=== PATIENT | female | born 1980 | race Caucasian/White ===

== ENCOUNTER 2019-11-17 14:48 | Inpatient (IN) | payer MEDICAID ==
[~2019-11-17] VITALS: Ht 157.5 cm; Wt 68.0 kg
[2019-11-17 15:15] VITALS: BP 131/84
[2019-11-17 15:31] VITALS: BP 131/84
[2019-11-17] MEDS ORDERED: BISACODYL 5MG TABLET PO PRN (18:15)
[2019-11-17] MEDS ORDERED: MAGNESIUM HYDROXIDE 400MG/5ML 30ML UDC PO PRN (18:15)
[2019-11-17] MEDS ORDERED: ACETAMINOPHEN 650MG/20.3ML UDC PO PRN (18:15)
[2019-11-17 20:00] VITALS: BP 125/81
[2019-11-17] MEDS ORDERED: WARFARIN SODIUM 2MG TABLET PO NR (20:00)
[2019-11-17] MEDS: SENNOSIDES/DOCUSATE SOD 8.6/50MG TABLET PO SCH (20:41)
[2019-11-18 06:54] LABS: INR 1.6; PROTHROMBIN TIME 17.1 sec (9.6-11.0)
[2019-11-18 07:05] LABS: BASOPHILS % 0.5 % (0.0-2.0); EOSINOPHILS % 1.8 % (0.0-5.0); HEMATOCRIT. 37.1 % (36.0-48.0); HEMOGLOBIN. 12.3 g/dL (12.0-16.0); LYMPHOCYTES % 26.1 % (20.0-50.0); MEAN CORPUSCULAR HEMOGLOBIN 32.8 pg (28.0-32.0); MEAN CORPUSCULAR VOLUME 99.2 fL (81.0-99.0); MEAN PLATELET VOLUME 8.2 fl (7.4-10.4); MONOCYTES % 9.1 % (2.0-8.0); NEUTROPHILS % 62.5 % (40.0-76.0); PLATELET 229 x1000/uL (130-400); RED BLOOD CELL COUNT 3.74 mill/uL (4.2-5.4); RED CELL DISTRIBUTION WIDTH 17.8 % (11.6-14.6)
[2019-11-18 07:11] LABS: CHLORIDE 106 mEq/L (98-107)
[2019-11-18] MEDS: ONDANSETRON 4MG ODT PO PRN ×2 (08:13→21:00)
[2019-11-18] MEDS: CYANOCOBALAMIN 1000MCG TABLET PO SCH (08:15)
[2019-11-18] MEDS: LACTOBACILLUS GG CAPSULE PO SCH (08:15)
[2019-11-18] MEDS: FERROUS SULFATE 325MG TABLET PO SCH (08:16)
[2019-11-18] MEDS: ASCORBIC ACID 250 MG TABLET PO SCH (08:17)
[2019-11-18] MEDS: FOLIC ACID 1MG TABLET PO SCH (08:17)
[2019-11-18] MEDS: DOCUSATE SODIUM 100MG CAPSULE PO SCH ×2 (08:17→17:12)
[2019-11-18] MEDS: POLYETHYLENE GLYCOL 3350 (17GM) 1 DOSE PACK PO SCH (08:18)
[2019-11-18 08:30] VITALS: BP 118/74
[2019-11-18] MEDS: LACTULOSE 20G/30ML UDC PO SCH ×3 (12:42→20:15)
[2019-11-18 15:23] LABS: CLARITY URINE TURBID (CLEAR); COLOR URINE DARK YELLOW (YELLOW); KETONES URINE TRACE (NEGATIVE); LEUKOCYTE ESTERASE URINE 1+ (NEGATIVE); NITRITE URINE NEGATIVE (NEGATIVE); OCCULT BLOOD URINE NEGATIVE (NEGATIVE); PH URINE 5.5 (4.5-8.0); PROTEIN URINE TRACE (NEGATIVE); SPECIFIC GRAVITY URINE 1.024 (1.005-1.030); UROBILINOGEN URINE 0.2 E.U./dL (0.2-1.0)
[2019-11-18] MEDS ORDERED: WARFARIN SODIUM 3MG TABLET PO SCH (18:00)
[2019-11-18 20:00] VITALS: BP 98/49
[2019-11-18] MEDS: SENNOSIDES/DOCUSATE SOD 8.6/50MG TABLET PO SCH (21:00)
[2019-11-19 06:33] LABS: INR 1.8; PROTHROMBIN TIME 19.1 sec (9.6-11.0)
[2019-11-19 06:57] LABS: BASOPHILS % 0.6 % (0.0-2.0); EOSINOPHILS % 1.8 % (0.0-5.0); HEMATOCRIT. 34.8 % (36.0-48.0); LYMPHOCYTES % 26.7 % (20.0-50.0); MEAN CORPUSCULAR HEMOGLOBIN 33.5 pg (28.0-32.0); MEAN CORPUSCULAR VOLUME 97.7 fL (81.0-99.0); MEAN PLATELET VOLUME 8.3 fl (7.4-10.4); MONOCYTES % 9.5 % (2.0-8.0); NEUTROPHILS % 61.4 % (40.0-76.0); PLATELET 242 x1000/uL (130-400); RED BLOOD CELL COUNT 3.57 mill/uL (4.2-5.4); RED CELL DISTRIBUTION WIDTH 17.4 % (11.6-14.6)
[2019-11-19 07:01] LABS: CHLORIDE 107 mEq/L (98-107)
[2019-11-19 07:07] LABS: PHOSPHORUS 4.6 mg/dL (2.5-4.9)
[2019-11-19 07:20] LABS: FOLIC ACID (FOLATE) SERUM >20 ng/mL ng/mL (>5.38)
[2019-11-19 07:32] LABS: VITAMIN B12 SERUM 1271 pg/mL (211-911)
[2019-11-19 08:33] VITALS: BP 109/65
[2019-11-19] MEDS: DOCUSATE SODIUM 100MG CAPSULE PO SCH ×2 (09:00→17:00)
[2019-11-19] MEDS: POLYETHYLENE GLYCOL 3350 (17GM) 1 DOSE PACK PO SCH (09:00)
[2019-11-19] MEDS: LACTOBACILLUS GG CAPSULE PO SCH (09:00)
[2019-11-19] MEDS: ONDANSETRON 4MG ODT PO PRN (09:16)
[2019-11-19] MEDS: FERROUS SULFATE 325MG TABLET PO SCH (10:11)
[2019-11-19] MEDS: CYANOCOBALAMIN 1000MCG TABLET PO SCH (10:13)
[2019-11-19] MEDS: FOLIC ACID 1MG TABLET PO SCH (10:14)
[2019-11-19] MEDS: ASCORBIC ACID 250 MG TABLET PO SCH (10:20)
[2019-11-19] MEDS ORDERED: WARFARIN SODIUM 3MG TABLET PO NR (18:00)
[2019-11-19 20:09] VITALS: BP 123/75
[2019-11-19] MEDS: SENNOSIDES/DOCUSATE SOD 8.6/50MG TABLET PO SCH (21:00)
[2019-11-20 07:20] LABS: CHLORIDE 107 mEq/L (98-107)
[2019-11-20 07:30] LABS: INR 1.7; PROTHROMBIN TIME 17.7 sec (9.6-11.0)
[2019-11-20 07:31] LABS: BASOPHILS % 0.5 % (0.0-2.0); EOSINOPHILS % 1.8 % (0.0-5.0); HEMATOCRIT. 36.7 % (36.0-48.0); HEMOGLOBIN. 12.4 g/dL (12.0-16.0); LYMPHOCYTES % 25.1 % (20.0-50.0); MEAN CORPUSCULAR HEMOGLOBIN 33.1 pg (28.0-32.0); MEAN CORPUSCULAR VOLUME 98.3 fL (81.0-99.0); MEAN PLATELET VOLUME 8.6 fl (7.4-10.4); MONOCYTES % 7.7 % (2.0-8.0); NEUTROPHILS % 64.9 % (40.0-76.0); PLATELET 252 x1000/uL (130-400); RED BLOOD CELL COUNT 3.74 mill/uL (4.2-5.4); RED CELL DISTRIBUTION WIDTH 17.9 % (11.6-14.6)
[2019-11-20 07:54] VITALS: BP 115/79
[2019-11-20] MEDS: POLYETHYLENE GLYCOL 3350 (17GM) 1 DOSE PACK PO SCH (08:25)
[2019-11-20] MEDS: ASCORBIC ACID 250 MG TABLET PO SCH (08:25)
[2019-11-20] MEDS: FOLIC ACID 1MG TABLET PO SCH (08:25)
[2019-11-20] MEDS: FERROUS SULFATE 325MG TABLET PO SCH (08:25)
[2019-11-20] MEDS: LACTOBACILLUS GG CAPSULE PO SCH (08:25)
[2019-11-20] MEDS: CYANOCOBALAMIN 1000MCG TABLET PO SCH (08:25)
[2019-11-20] MEDS: DOCUSATE SODIUM 100MG CAPSULE PO SCH ×2 (08:25→16:58)
[2019-11-20] MEDS: ONDANSETRON 4MG ODT PO PRN (08:39)
[2019-11-20] MEDS ORDERED: MAGNESIUM CITRATE 300ML SOLUTION PO NR (13:00)
[2019-11-20] MEDS ORDERED: WARFARIN SODIUM 4MG TABLET PO SCH (18:00)
[2019-11-20 18:26] LABS: HEPATITIS A AB IGM NEGATIVE (NEGATIVE)
[2019-11-20 20:00] VITALS: BP 136/75
[2019-11-20 20:11] LABS: HEPATITIS B SURFACE ANTIGEN REACTIVE PEND CONFIR
[2019-11-20] MEDS: SENNOSIDES/DOCUSATE SOD 8.6/50MG TABLET PO SCH (21:00)
[2019-11-21 06:43] LABS: INR 2.3; PROTHROMBIN TIME 24.4 sec (9.6-11.0)
[2019-11-21 07:22] LABS: LDL CHOLESTEROL 89 mg/dL (5-100)
[2019-11-21 07:26] LABS: HDL CHOLESTEROL 45 mg/dL (40-59)
[2019-11-21 07:48] VITALS: BP 110/70
[2019-11-21 08:09] VITALS: BP 110/70
[2019-11-21] MEDS: ONDANSETRON 4MG ODT PO PRN (08:20)
[2019-11-21] MEDS: DOCUSATE SODIUM 100MG CAPSULE PO SCH ×3 (09:00→16:20)
[2019-11-21] MEDS: FERROUS SULFATE 325MG TABLET PO SCH (09:10)
[2019-11-21] MEDS: POLYETHYLENE GLYCOL 3350 (17GM) 1 DOSE PACK PO SCH (09:11)
[2019-11-21] MEDS: ASCORBIC ACID 250 MG TABLET PO SCH (09:11)
[2019-11-21] MEDS: CYANOCOBALAMIN 1000MCG TABLET PO SCH (09:11)
[2019-11-21] MEDS: FOLIC ACID 1MG TABLET PO SCH (09:11)
[2019-11-21] MEDS: LACTOBACILLUS GG CAPSULE PO SCH (09:11)
[2019-11-21] MEDS ORDERED: WARFARIN SODIUM 2MG TABLET PO SCH (18:00)
[2019-11-21 18:57] LABS: CLARITY URINE TURBID (CLEAR); COLOR URINE YELLOW (YELLOW); KETONES URINE TRACE (NEGATIVE); LEUKOCYTE ESTERASE URINE 1+ (NEGATIVE); NITRITE URINE NEGATIVE (NEGATIVE); OCCULT BLOOD URINE NEGATIVE (NEGATIVE); PH URINE 8.5 (4.5-8.0); PROTEIN URINE TRACE (NEGATIVE); SPECIFIC GRAVITY URINE 1.019 (1.005-1.030); UROBILINOGEN URINE 0.2 E.U./dL (0.2-1.0)
[2019-11-21 20:00] VITALS: BP 116/76
[2019-11-21] MEDS: SENNOSIDES/DOCUSATE SOD 8.6/50MG TABLET PO SCH (21:00)
[2019-11-22 04:07] LABS: HBSAG SCREEN Negative (Negative)
[2019-11-22 06:27] LABS: PROTHROMBIN TIME 31.9 sec (9.6-11.0)
[2019-11-22 08:00] VITALS: BP 112/72
[2019-11-22] MEDS: DOCUSATE SODIUM 100MG CAPSULE PO SCH ×2 (09:00→16:08)
[2019-11-22] MEDS: POLYETHYLENE GLYCOL 3350 (17GM) 1 DOSE PACK PO SCH (09:00)
[2019-11-22] MEDS: LACTOBACILLUS GG CAPSULE PO SCH (09:00)
[2019-11-22] MEDS: ONDANSETRON 4MG ODT PO PRN (09:07)
[2019-11-22] MEDS: FOLIC ACID 1MG TABLET PO SCH (11:54)
[2019-11-22] MEDS: FERROUS SULFATE 325MG TABLET PO SCH (11:54)
[2019-11-22] MEDS: CYANOCOBALAMIN 1000MCG TABLET PO SCH (11:54)
[2019-11-22] MEDS: ASCORBIC ACID 250 MG TABLET PO SCH (11:54)
[2019-11-22] MEDS ORDERED: WARFARIN SODIUM 2MG TABLET PO SCH (18:00)
[2019-11-22 20:00] VITALS: BP 121/66
[2019-11-22] MEDS: SENNOSIDES/DOCUSATE SOD 8.6/50MG TABLET PO SCH (20:38)
[2019-11-23 07:02] LABS: INR 2.9; PROTHROMBIN TIME 30.8 sec (9.6-11.0)
[2019-11-23 07:12] LABS: HEMOGLOBIN 12.5 g/dL (12.0-16.0); MEAN CORPUSCULAR VOLUME 97.9 fL (81.0-99.0); PLATELET 246 x1000/uL (130-400); RED BLOOD CELL COUNT 3.78 mill/uL (4.2-5.4); RED CELL DISTRIBUTION WIDTH 17.4 % (11.6-14.6)
[2019-11-23] MEDS: ONDANSETRON 4MG ODT PO PRN (07:20)
[2019-11-23 07:30] VITALS: BP 138/89
[2019-11-23] MEDS: DOCUSATE SODIUM 100MG CAPSULE PO SCH ×2 (09:00→17:00)
[2019-11-23] MEDS: POLYETHYLENE GLYCOL 3350 (17GM) 1 DOSE PACK PO SCH (09:00)
[2019-11-23] MEDS: FOLIC ACID 1MG TABLET PO SCH (10:42)
[2019-11-23] MEDS: CYANOCOBALAMIN 1000MCG TABLET PO SCH (10:42)
[2019-11-23] MEDS: LACTOBACILLUS GG CAPSULE PO SCH (10:43)
[2019-11-23] MEDS: ASCORBIC ACID 250 MG TABLET PO SCH (10:43)
[2019-11-23] MEDS: FERROUS SULFATE 325MG TABLET PO SCH (10:44)
[2019-11-23 13:06] LABS: 25-HYDROXY VITAMIN D3 24 ng/mL (.)
[2019-11-23] MEDS ORDERED: WARFARIN SODIUM 2MG TABLET PO SCH (18:00)
[2019-11-23] MEDS ORDERED: ERGOCALCIFEROL 50000UNITS CAPSULE PO SCH (20:00)
[2019-11-23 20:09] VITALS: BP 108/70
[2019-11-23] MEDS: SENNOSIDES/DOCUSATE SOD 8.6/50MG TABLET PO SCH (21:00)
[2019-11-23 21:05] LABS: CHLORIDE 105 mEq/L (98-107)
[2019-11-24 07:30] VITALS: BP 112/67
[2019-11-24 07:31] LABS: INR 3.2; PROTHROMBIN TIME 33.8 sec (9.6-11.0)
[2019-11-24] MEDS: POLYETHYLENE GLYCOL 3350 (17GM) 1 DOSE PACK PO SCH (09:00)
[2019-11-24] MEDS: ASCORBIC ACID 250 MG TABLET PO SCH (09:00)
[2019-11-24] MEDS: ONDANSETRON 4MG ODT PO PRN (10:20)
[2019-11-24] MEDS: FERROUS SULFATE 325MG TABLET PO SCH (10:52)
[2019-11-24] MEDS: DOCUSATE SODIUM 100MG CAPSULE PO SCH ×2 (10:52→13:59)
[2019-11-24] MEDS: LACTOBACILLUS GG CAPSULE PO SCH (10:52)
[2019-11-24] MEDS: FOLIC ACID 1MG TABLET PO SCH (10:52)
[2019-11-24] MEDS: CYANOCOBALAMIN 1000MCG TABLET PO SCH (10:52)
[2019-11-24] MEDS ORDERED: DOCU-150 PO (12:56)
[2019-11-24] MEDS ORDERED: ONDA4TAB11 PO (12:56)
[2019-11-24] MEDS ORDERED: CYAN-50 PO (12:56)
[2019-11-24] MEDS ORDERED: MOM PO (12:56)
[2019-11-24] MEDS ORDERED: ASC250 PO (12:56)
[2019-11-24] MEDS ORDERED: LACT1CAP77 PO (12:56)
[2019-11-24] MEDS ORDERED: SENN-3 PO (12:56)
[2019-11-24] MEDS ORDERED: FERR325T23 PO (12:56)
[2019-11-24] MEDS ORDERED: ACET650S25 PO (12:56)
[2019-11-24] MEDS ORDERED: POLY17PO3 PO (12:56)
[2019-11-24] MEDS ORDERED: FOLI-43 PO (12:56)
[2019-11-24 20:00] VITALS: BP 145/89
[2019-11-24] MEDS: SENNOSIDES/DOCUSATE SOD 8.6/50MG TABLET PO SCH (20:35)
[2019-11-25 06:51] LABS: BASOPHILS % 0.6 % (0.0-2.0); HEMATOCRIT. 34.9 % (36.0-48.0); HEMOGLOBIN. 11.9 g/dL (12.0-16.0); LYMPHOCYTES % 29.7 % (20.0-50.0); MEAN CORPUSCULAR HEMOGLOBIN 32.8 pg (28.0-32.0); MEAN CORPUSCULAR VOLUME 96.4 fL (81.0-99.0); MEAN PLATELET VOLUME 8.1 fl (7.4-10.4); MONOCYTES % 7.3 % (2.0-8.0); NEUTROPHILS % 60.4 % (40.0-76.0); PLATELET 256 x1000/uL (130-400); RED BLOOD CELL COUNT 3.62 mill/uL (4.2-5.4); RED CELL DISTRIBUTION WIDTH 17.1 % (11.6-14.6)
[2019-11-25 06:58] LABS: INR 2.4; PROTHROMBIN TIME 25.7 sec (9.6-11.0)
[2019-11-25 07:08] LABS: CHLORIDE 105 mEq/L (98-107)
[2019-11-25 08:00] VITALS: BP 120/78
[2019-11-25 08:14] VITALS: BP 120/78
[2019-11-25] MEDS: FOLIC ACID 1MG TABLET PO SCH (08:56)
[2019-11-25] MEDS: DOCUSATE SODIUM 100MG CAPSULE PO SCH (08:56)
[2019-11-25] MEDS: POLYETHYLENE GLYCOL 3350 (17GM) 1 DOSE PACK PO SCH (08:56)
[2019-11-25] MEDS: CYANOCOBALAMIN 1000MCG TABLET PO SCH (08:56)
[2019-11-25] MEDS: FERROUS SULFATE 325MG TABLET PO SCH (08:56)
[2019-11-25] MEDS: ASCORBIC ACID 250 MG TABLET PO SCH (08:56)
[2019-11-25] MEDS: LACTOBACILLUS GG CAPSULE PO SCH (08:56)
[2019-11-25 09:14] VITALS: BP 120/78
[2019-11-25] MEDS ORDERED: WARFARIN SODIUM 2MG TABLET PO SCH (18:00)
== END 2019-11-25 13:20 | disposition home health service (06) | DRG 44 ==
LOC: ER 14:48
PROVIDERS: ADMIT Physical Medicine & Rehabilitation Spinal Cord Injury Medicine; ATTEND Family Medicine Adult Medicine
DX: I62.9 Nontraumatic intracranial hemorrhage, unspecified (principal); D68.59 Other primary thrombophilia; Z79.01 Long term (current) use of anticoagulants; R13.10 Dysphagia, unspecified; R53.81 Other malaise; R26.9 Unspecified abnormalities of gait and mobility; R73.9 Hyperglycemia, unspecified; D64.9 Anemia, unspecified; K59.09 Other constipation; R74.0 Nonspecific elevation of levels of transaminase and lactic acid dehydrogenase [LDH]; N39.0 Urinary tract infection, site not specified; I70.8 Atherosclerosis of other arteries; E55.9 Vitamin D deficiency, unspecified; Z88.0 Allergy status to penicillin; Z83.3 Family history of diabetes mellitus; Z88.8 Allergy status to other drugs, medicaments and biological substances
CPT/HCPCS: 36415; 76700; 80048; 80053; 80061; 80076; 81003; 82248; 82306; 82607; 82746; 83735; 84100; 84134; 84443; 85025; 85027; 86705; 86709; 86803; 87340; 92523; 92610; 93970; 97110; 97112; 97116; 97163; 97166; 97530; 97535; 99285; Q0162